=== PATIENT | male | born 1995 | race Caucasian/White ===

== ENCOUNTER 2016-07-01 15:05 | Emergency (ER) | payer OTHER ==
--- NOTE | 2016-07-01 15:08 | EDPHY ---
H & P HPI/ROS: CHIEF COMPLAINT: Possible seizure. HISTORY OF PRESENT ILLNESS: The patient is a 20-year-old male presenting via EMS for a seizure an hour ago. [place] being attended to by paramedics. The seizure was witnessed by his friends. He was seen in the emergency department last March after an episode of loss of consciousness. He had a negative head CT and echocardiogram at that time. At that time it was thought that he likely had a syncopal episode. He did not follow up with Cardiology. He does state that he has had syncopal episodes previously, usually preceded by smelling paint or not eating. He denies alcohol use today or yesterday. He uses marijuana socially and last smoked marijuana yesterday. He has not had much to eat or drink in the past day. He denies incontinence, headache, dizziness, vomiting, oral trauma, or other complaints. He does not have weakness or numbness. He has not recently been ill. I spoke with a friend who witnessed today's event. He states that Mr. Espinoza was sitting on the couch, extended his arms upward as if to stretch, then fell to the side and had jerking movements of his arms and legs. His friends kept him safe on the couch. When he awakened he was described as dazed and slightly confused. REVIEW OF SYSTEMS: A 10 point review of systems was performed and is negative with the exception of the elements mentioned in the history of present illness. Source: Patient, Other (Friends) Exam Limitations: No limitations - Medical/Surgical History Hx Asthma: No Hx Chronic Respiratory Disease: No Hx Diabetes: No Hx Cardiac Disease: No Hx Renal Disease: No Hx Cirrhosis: No Hx Alcoholism: No Hx HIV/AIDS: No Hx Splenectomy or Spleen Trauma: No Other PMH: none - Social History Smoking Status: Never smoked Alcohol Use: Occasionally Drug Use: Marijuana Additional Social History: [employer] Student (sophomore, studying finance), drinks alcohol 2 nights per week, smokes marijuana. - Physical Exam Exam: General Appearance: Alert, no acute distress. Heart rate 104. Head: Normocephalic atraumatic. Eyes: Pupils equal and round, no conjunctival injection, no discharge. ENT, Mouth: Mucous membranes are moist, no oropharyngeal erythema or edema. No tongue injury. Neck: No lymphadenopathy, supple. Nontender over the cervical spine. Respiratory: Lungs are clear to auscultation; no wheezes, rales, or rhonchi. Cardiovascular: Regular rate and rhythm (not tachycardic at the time of my exam) ; no murmur, rub, or gallop. Gastrointestinal: Abdomen is soft and nontender, no masses or organomegaly, bowel sounds normal. Skin: Warm and dry, no rashes, normal color. Back: Nontender to palpation over the thoracolumbar spine. Extremities: No lower extremity edema, no calf tenderness or swelling. Neurological: Alert and oriented. Moving all four extremities easily and equally. Cranial nerves II through XII are examined and are intact (visual acuity not tested). Strength is 5 over 5 bilaterally with testing of all major motor groups. Sensation is intact to light touch over all 4 extremities. Deep tendon reflexes are 2+ in the biceps and knees bilaterally. [id number] is performed accurately. Psychiatric: Normal affect. Constitutional: Initial Vital Signs Temperature (C) 36.9 C 07/01/16 15:23 Heart Rate 104 H 07/01/16 15:23 Respiratory Rate 16 07/01/16 15:23 Blood Pressure 124/64 H 07/01/16 15:23 O2 Sat (%) 92 07/01/16 15:23 O2 Delivery Mode Room Air Allergies/Adverse Reactions: No Known Allergies Allergy (Unverified 04/16/16 07:19) Home Medications: Medication Instructions Recorded NK [No Known Home Meds] 04/16/16 Medical Decision Making - Diagnostics EKG Interpretation: The 12 lead EKG was interpreted by myself. See hard copy and/or "tracemaster" electronic copy for interpretation. Sinus rhythm, rate 73. ED Course/Re-evaluation: An IV was established and labs ordered. 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 He was seen on April 16 with a seizure versus syncopal episode. At that time he had a cardiac evaluation that was negative/normal. 1540: Reassessed patient. His girlfriend now present at bedside reports that she did not witness the episode, but that the patient's roommates described a "clear seizure." I also spoke to the patient's friend on the phone. He reports that the patient stretched out his arms, went stiff, fell to the side on the cough, and began to convulse. When he woke up he was confused. Patient's carbon dioxide low at 15 and anion gap 26. Prolactin elevated at 79.7. It is my impression that this patient did experience had a seizure today. I strongly suspect that this is not his 1st seizure. He had a normal CT scan of his head performed in March and I am not repeating this study. He has not had head trauma. I do not think that he needs a head MRI today. He has a normal neurologic examination and has returned to a normal mental status. He was observed in the emergency department, during which time he did not experience seizure activity. I have not found evidence of an electrolyte abnormality that might cause seizure activity. He does not appear to be under the influence of any substances that might cause seizures and does not take any medications that might cause seizures. No meningeal or signs or signs of infection. 1639: Consulted with Dr. Mayo, neurology. He will see the patient in his office for evaluation. The importance of neurologic follow-up was stressed to him. I have advised him that he should not drive or engage in otherwise potentially dangerous activity until cleared to do so by physician. He states an understanding of this and assures me that he will not drive and does not have access to a car. Differential Diagnosis: Seizure including but not limited to electrolyte abnormality, alcohol withdrawal , medication noncompliance, head injury, and breakthrough seizure. - Data Points Laboratory Results: Laboratory Results 07/01/16 15:06 07/01/16 15:06 Departure - Departure Disposition: Home, Routine, Self-Care Clinical Impression: Seizure Condition: Good Instructions: New-Onset Seizure in Adults (ED) Additional Instructions: Call Dr. Mayo, neurology, tomorrow to set up a follow up appointment. Let the staff know that you were seen in the emergency room after having a seizure. Do not drive or engage in other potentially dangerous activities until you have been cleared by neurology. Return to the emergency department if you experience another seizure, dizziness , confusion, vomiting, or any serious worsening of condition. Referrals: Fawad Mayo MD [Medical Doctor] - As per Instructions Report Scribed for: Geri Amos Report Scribed by: Edward Mann Date of Report: 07/01/16 Time of Report: 15:17 Physician Review and Approval Statement: 07/03/16 07:43 Portions of this note were transcribed by the medical transcriptionist. I, Dr. Geri Amos, personally performed the history, physical exam, and medical decision- making; and confirmed the accuracy of the information in the transcribed note.
[2016-07-01 15:25] LABS: % IMMATURE GRANULYOCYTES 0.4 % (0.0-1.1); ABSOLUTE IMMATURE GRANULOCYTES 0.05 10^3/uL (0.00-0.10); ADD DIFF? NO; ADD MORPH? NO; ADD SCAN? NO; ATYPICAL LYMPHOCYTE FLAG 10 (0-99); FRAGMENT RBC FLAG 0 (0-99); HEMATOCRIT 49.5 % (40.0-51.0); HEMOGLOBIN 16.9 g/dL (13.7-17.5); LEFT SHIFT FLG 0 (0-99); LIPEMIA HEMOLYSIS FLAG 90 (0-99); MEAN CELL HEMOGLOBIN 31.2 pg (27.9-34.1); MEAN CELL HEMOGLOBIN CONCENTR. 34.1 g/dL (32.4-36.7); MEAN CELL VOLUME 91.5 fL (81.5-99.8); MEAN PLATELET VOLUME 11.1 fL (8.7-11.7); PLATELET CLUMPS FLAG 0 (0-99); PLATELET COUNT 319 10^3/uL (150-400); RED BLOOD CELL COUNT 5.41 10^6/uL (4.40-6.38); RED CELL DISTRIBUTION WIDTH 12.7 % (11.5-15.2)
[2016-07-01 15:38] LABS: ANION GAP 26 mEq/L (8-16); CALCIUM 9.8 mg/dL (8.5-10.4); CARBON DIOXIDE 15 mEq/l (22-31); CHLORIDE 102 mEq/L (97-110); CREATININE 1.2 mg/dL (0.7-1.3); GLOMERULAR FILTRATION RATE > 60; GLUCOSE 103 mg/dL (70-100); POTASSIUM 3.9 mEq/L (3.5-5.2); SODIUM 143 mEq/L (134-144)
[2016-07-01 15:40] VITALS: BP 124/64; PULSE 104; RESP 16; TEMP 98.5; O2SAT 92
--- NOTE | 2016-07-01 15:53 | CPEKG ---
Heart Rate: 73 RR Interval: 822 P-R Interval: 136 QRSD Interval: 92 QT Interval: 356 QTC Interval: 393 P [place]: 43 QRS [place]: 81 T Wave Manchester: 41 EKG Severity - NORMAL ECG - EKG Impression: SINUS RHYTHM Electronically Signed By: Geri Amos 02-Jul-2016 00:28:57
[2016-07-01 15:55] LABS: PROLACTIN 79.7 ng/mL (3.7-17.9)
== END 2016-07-01 17:34 | disposition home or self-care (01) ==
LOC: EDUNIT#
DX: R56.9 Unspecified convulsions (principal); F17.200 Nicotine dependence, unspecified, uncomplicated

== ENCOUNTER → 2016-08-07 | Outpatient (CLI) | payer OTHER | LOC: FIMAGING 14:44 | PROVIDERS: ATTEND Psychiatry & Neurology Neurology | DX: G40.909 Epilepsy, unspecified, not intractable, without status epilepticus (principal) ==

== ENCOUNTER 2017-04-08 09:36 | Emergency (ER) | payer OTHER ==
[2017-04-08 09:40] VITALS: RESP 18
--- NOTE | 2017-04-08 09:43 | EDPHY ---
H & P Stated Complaint: WITNESSED SZ. - Personal History Current Tetanus/Diphtheria Vaccine: Yes Current Tetanus Diphtheria and Acellular Pertussis (TDAP): Yes - Medical/Surgical History Hx Asthma: No Hx Chronic Respiratory Disease: No Hx Diabetes: No Hx Cardiac Disease: No Hx Renal Disease: No Hx Cirrhosis: No Hx Alcoholism: No Hx HIV/AIDS: No Hx Splenectomy or Spleen Trauma: No Other PMH: SEIZURE DISORDER - Social History Smoking Status: Never smoked HPI/ROS: CHIEF COMPLAINT: Witnessed seizure activity HISTORY OF PRESENT ILLNESS: 21-year-old male with known history of seizure disorder on daily Keppra followed by Dr. 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 EMS did not witness seizure activity but do reports that he was alert and oriented x1 upon arrival and progressively mentating more clearly en route to the hospital. He forgot to take his morning dose of Keppra 1000 mg this morning. States that he did not sleep very well last evening because his room was too hot. Currently no complaints of headache, no incontinence, no oral trauma. PRIMARY CARE PROVIDER: carrol Jane REVIEW OF SYSTEMS: A ten point review of systems was performed and is negative with the exception of the items mentioned in the HPI PAST MEDICAL/SURGICAL HISTORY: no anticoagulant use, no relevant medical/ surgical history SOCIAL HISTORY: denies alcohol use at time of incident PHYSICAL EXAM 1) GENERAL: Well-developed, well-nourished, alert and oriented. Appears to be in no acute distress. Answering questions appropriately. GCS 15 2) HEAD: Normocephalic, left lateral eyebrow 1 cm well-demarcated laceration just inferior to the left lateral eyebrow, hemostatic 3) HEENT: Pupils equal, round, reactive to light bilaterally. Negative Horners. Nasopharynx, oropharynx, clear. No deformity or angulation of nose. No septal hematoma. No rhinorrhea. No oral trauma. Ears bilaterally with normal tympanic membranes. No hemotympanum. No fluid or blood in the external auditory canal. No raccoon eyes. No Gaitan sign. Teeth are normally aligned with no gross malocclusion, TMJ bilaterally nontender, facial bones nontender including the zygomatic arch, maxilla mandible. 4) NECK: No cervical collar is on. Posterior cervical spine is nontender, no stepoff, no effusion. Full range of motion which does not elicit any midline cervical spine pain, no posterior midline tenderness, no step-off. 5) LUNGS: Clear to auscultation bilaterally, no wheezes, no rhonchi, no retractions. No obvious signs of trauma. No chest wall pain. No flaring, no grunting. Moving symmetrically. No crepitus. 6) HEART: Regular rate and rhythm, 7) ABDOMEN: No guarding, no rebound, no focal tenderness, no peritoneal signs, no signs of trauma, no ecchymosis , no fecal or urinary incontinence 8) MUSCULOSKELETAL: Moving all extremities, no focal areas of tenderness, no obvious trauma. 9) BACK: Patient logrolled while holding inline traction.No midline vertebral tenderness, no fluctuance, no step-off, no obvious trauma, no visual or palpable abnormality. 10) SKIN: left eyebrow laceration 11) NEURO: Awake, alert, and oriented to person, place and time. Answers questions appropriately. There were no obvious focal neurologic abnormalities. No cerebellar dysfunction. Normal steady gait. Upper and lower extremities bilaterally with strength 5 / 5, reflexes 2+. DIFFERENTIAL DIAGNOSIS: in no particular include but limited to syncope, arrhythmia, seizure (Cary,Dianna Shannan) Constitutional: Initial Vital Signs Temperature (C) 36.8 C 04/08/17 09:38 Heart Rate 101 H 04/08/17 09:38 Respiratory Rate 18 04/08/17 09:38 Blood Pressure 130/87 H 04/08/17 09:38 O2 Sat (%) 93 04/08/17 09:38 O2 Delivery Mode Room Air Allergies/Adverse Reactions: No Known Allergies Allergy (Unverified 04/16/16 07:19) Home Medications: Medication Instructions Recorded Keppra 500 mg (*) 04/08/17 Medical Decision Making ED Course/Re-evaluation: 9:42 a.m.: Old medical records reviewed including MRI dated July 2016 which is normal. Patient also informs that he saw his neurologist earlier this week ( today is Tuesday).. The patient states that he skipped his morning dose of Keppra 1000 mg this morning. He will be given this dose now in the ER, observed for a period of time. Will hold on imaging at this time. Will observe patient for period of time in the ER. I suspect that combination of poor sleep hygiene last evening and missing his morning dose of Keppra contributed to a breakthrough seizure.Care of patient under supervision of secondary supervising physician Dr Gonzalez with whom I discussed care. 11:20 a.m.: Re-evaluation answering questions appropriately, he would like to be discharged. Plan will be discharge, recommend stay compliant with his Keppra , take it as directed. He feels comfortable being discharged. (Dianna Townsend) Other Provider: The patient was evaluated and managed by the Physician Filler Wiper/ Nurse Practitioner. I discussed the patient's presentation and course with the midlevel provider with them and agree with the evaluation. My co-signature indicates that I have reviewed this chart and I agree with the findings and plan of care as documented. I am the secondary supervising physician. (Monica Gonzalez) - Data Points Laboratory Results: Laboratory Results 04/08/17 Unknown 04/08/17 Unknown 04/08/17 04/08/17 Unknown Unknown WBC 10.82 10^3/uL H 10^3/uL (3.80-9.50) RBC 5.55 10^6/uL 10^6/uL (4.40-6.38) Hgb 17.2 g/dL g/dL (13.7-17.5) Hct 51.2 % H % (40.0-51.0) MCV 92.3 fL fL (81.5-99.8) MCH 31.0 pg pg (27.9-34.1) MCHC 33.6 g/dL g/dL (32.4-36.7) RDW 12.0 % % (11.5-15.2) Plt Count 313 10^3/uL 10^3/uL (150-400) MPV 10.8 fL fL (8.7-11.7) Neut % (Auto) 48.9 % % (39.3-74.2) Lymph % (Auto) 40.3 % % (15.0-45.0) [place] % (Auto) 7.2 % % (4.5-13.0) Eos % (Auto) 2.4 % % (0.6-7.6) Baso % (Auto) 0.6 % % (0.3-1.7) Nucleat RBC Rel Count 0.0 % % (0.0-0.2) Absolute Neuts (auto) 5.28 10^3/uL 10^3/uL (1.70-6.50) Absolute Lymphs (auto) 4.36 10^3/uL H 10^3/uL (1.00-3.00) Absolute Monos (auto) 0.78 10^3/uL 10^3/uL (0.30-0.80) Absolute Eos (auto) 0.26 10^3/uL 10^3/uL (0.03-0.40) Absolute Basos (auto) 0.07 10^3/uL 10^3/uL (0.02-0.10) Absolute Nucleated RBC 0.00 10^3/uL 10^3/uL (0-0.01) Immature Gran % 0.6 % % (0.0-1.1) Immature Gran # 0.07 10^3/uL 10^3/uL (0.00-0.10) Sodium 142 mEq/L mEq/L (134-144) Potassium 3.9 mEq/L mEq/L (3.5-5.2) Chloride 99 mEq/L mEq/L (97-110) Carbon Dioxide 11 mEq/l L mEq/l (22-31) Anion Gap 32 mEq/L H mEq/L (8-16) BUN 14 mg/dL mg/dL (7-23) Creatinine 1.2 mg/dL mg/dL (0.7-1.3) Estimated GFR > 60 Glucose 147 mg/dL H mg/dL (70-100) Calcium 10.1 mg/dL mg/dL (8.5-10.4) Ethyl Alcohol < 10 mg/dL mg/dL (0-10) Medications Given: Discontinued Medications Levetiracetam (Keppra) 1,000 mg PO EDNOW ONE Stop: 04/08/17 09:46 Last Admin: 04/08/17 09:51 Dose: 1,000 mg Departure - Departure Disposition: Home, Routine, Self-Care Clinical Impression: Seizure Condition: Good Instructions: Epilepsy (ED) Additional Instructions: Please take your Keppra as directed and do not miss a dose. Until your cleared by the your neurologist do not: Drive, swim alone, climb to heights, operate machinery Referrals: Edgar Jane MD [Medical Doctor] - 2-3 days, call for appt.
[2017-04-08] MEDS ORDERED: SKIN ADHESIVE (DERMABOND) 1 EACH TP ONE (09:45)
[2017-04-08] MEDS ORDERED: levETIRAcetam 500 MG TAB PO ONE (09:45)
[2017-04-08 09:49] LABS: % IMMATURE GRANULYOCYTES 0.6 % (0.0-1.1); ABSOLUTE IMMATURE GRANULOCYTES 0.07 10^3/uL (0.00-0.10); ADD DIFF? NO; ADD MORPH? NO; ADD SCAN? NO; ATYPICAL LYMPHOCYTE FLAG 0 (0-99); FRAGMENT RBC FLAG 0 (0-99); HEMATOCRIT 51.2 % (40.0-51.0); HEMOGLOBIN 17.2 g/dL (13.7-17.5); LEFT SHIFT FLG 0 (0-99); LIPEMIA HEMOLYSIS FLAG 80 (0-99); MEAN CELL HEMOGLOBIN CONCENTR. 33.6 g/dL (32.4-36.7); MEAN CELL VOLUME 92.3 fL (81.5-99.8); MEAN PLATELET VOLUME 10.8 fL (8.7-11.7); PLATELET CLUMPS FLAG 0 (0-99); PLATELET COUNT 313 10^3/uL (150-400); RED BLOOD CELL COUNT 5.55 10^6/uL (4.40-6.38)
--- NOTE | 2017-04-08 09:57 | CPEKG ---
Heart Rate: 100 RR Interval: 600 P-R Interval: 124 QRSD Interval: 84 QT Interval: 340 QTC Interval: 439 P Kopperl: 74 QRS Kopperl: 91 T Wave Kopperl: 32 EKG Severity - ABNORMAL ECG - EKG Impression: SINUS TACHYCARDIA EKG Impression: RIGHT ATRIAL ABNORMALITY EKG Impression: BORDERLINE RIGHT AXIS DEVIATION Electronically Signed By: Monica Gonzalez 08-Apr-2017 17:39:38
[2017-04-08 10:09] LABS: ANION GAP 32 mEq/L (8-16); CALCIUM 10.1 mg/dL (8.5-10.4); CARBON DIOXIDE 11 mEq/l (22-31); CHLORIDE 99 mEq/L (97-110); CREATININE 1.2 mg/dL (0.7-1.3); ETHANOL SERUM < 10 mg/dL (0-10); GLOMERULAR FILTRATION RATE > 60; GLUCOSE 147 mg/dL (70-100); POTASSIUM 3.9 mEq/L (3.5-5.2); SODIUM 142 mEq/L (134-144)
[2017-04-08 11:41] VITALS: BP 131/70; PULSE 80; TEMP 98.4; O2SAT 95
== END 2017-04-08 11:41 | disposition home or self-care (01) ==
LOC: EDUNIT#
DX: G40.909 Epilepsy, unspecified, not intractable, without status epilepticus (principal)
CPT/HCPCS: G0480